=== PATIENT | female | born 1960 | race Hispanic/Latino ===

== ENCOUNTER 2024-07-09 08:57 | Emergency (ER) | payer SELFPAY ==
[~2024-07-09] VITALS: Ht 152.4 cm; Wt 67.0 kg
[2024-07-09] VITALS (11 sets, daily range): BP systolic 138–180; BP diastolic 78–98
[~2024-07-09 08:57] MED LIST: NO HOME MEDS
[2024-07-09] MEDS ORDERED: LIPITOR20 M1 PO (09:17)
[2024-07-09] MEDS ORDERED: LISINOPRIL10 MG PO (09:17)
[2024-07-09 09:30] LABS: BASO% 0.7 % (0-3); HEMOGLOBIN 16.1 g/dl (12.0-16.0); MEAN CELL VOLUME 88.2 fL CALC (80.0-100.0); MEAN CORPUSCULAR HGB 29.3 pG CALC (26.0-32.0); MEAN CORPUSCULAR HGB CONC 33.2 g/dL CAL (32.0-36.0); MONO% 7.2 % (2-13); NEUT# 3.04 thou/uL (2.00-7.15); NEUT% 56.1 % (42-76); RED BLOOD COUNT 5.5 mill/uL (4.20-5.60); RED CELL DISTRI WIDTH 12.5 % (11.5-15.5)
[2024-07-09 09:32] LABS: HEMATOCRIT 48.5 % (37.0-47.0)
[2024-07-09 09:35] LABS: URINE BILIRUBIN - DIPSTICK Negative (NEGATIVE); URINE BLOOD DIPSTICK Trace-lysed (NEGATIVE); URINE GLUCOSE - DIPSTICK Negative (NEGATIVE); URINE KETONE Negative (NEGATIVE); URINE NITRITE - DIPSTICK Negative (Negative); URINE PROTEIN - DIPSTICK 30 mg/dL (NEG-TRACE); URINE UROBILINOGEN - DIPSTICK 0.2 E.U./dL (0.2)
[2024-07-09 09:36] LABS: URINE COLOR Yellow; URINE LEUK ESTERASE Small (NEGATIVE)
[2024-07-09 09:45] LABS: URINE BACTERIA RARE hpf; URINE MUCUS RARE hpf (NONE-FEW); URINE RBC 0-2 RBC/hpf (0-5); URINE SQUAMOUS EPITHELIAL CELL RARE EPI/hpf (0-FEW)
[2024-07-09 09:50] LABS: ALBUMIN 4.9 g/dL (3.2-5.0); ALKALINE PHOSPHATASE 131 u/l (38-126); ANION GAP 14 (6-22 (CALC)); BILIRUBIN, TOTAL 0.9 mg/dL (0.02-1.3); BUN 12 mg/dL (8-23); BUN/CREATININE RATIO 20 (12-20 (CALC)); CARBON DIOXIDE 25 mmol/l (22-30); CHLORIDE 105 mmol/l (95-108); CREATININE 0.6 mg/dL (0.5-1.0); ESTIMATED GFR 102 ML/MIN (>=90 (CALC)); LIPASE 117 u/l (23-300); POTASSIUM 4.1 mmol/l (3.5-5.1); SGOT/AST 33 u/l (9-36); SODIUM 140 mmol/l (137-146); TOTAL PROTEIN 9.2 g/dL (6.3-8.2)
[2024-07-09] MEDS ORDERED: NAPROXEN500 MG PO (11:19)
[2024-07-09] MEDS ORDERED: OMEPRAZOLE20 MG PO (11:19)
== END 2024-07-09 11:52 | disposition home or self-care (01) | DRG 392 ==
LOC: ED 08:57
PROVIDERS: Family Medicine
DX: R10.11 Right upper quadrant pain (principal); R10.13 Epigastric pain; I10 Essential (primary) hypertension
CPT/HCPCS: Q9967